=== PATIENT | female | born 1995 | race Two or more races ===

== ENCOUNTER 2019-01-31 11:01 | Outpatient (CLI) | payer OTHER ==
[~2019-01-31 11:01] MED LIST: ACETAMINOOPHEN-1 TAB PO; DOLOGESIC 500-1 EACH PO
== END 2019-01-31 11:09 | disposition home or self-care (01) ==
LOC: SONOGRAMA 11:01
DX: Z00.00 Encounter for general adult medical examination without abnormal findings (principal)